=== PATIENT | male | born 1985 | race Caucasian/White ===

== ENCOUNTER 2016-05-10 23:42 | Inpatient (IN) | payer BC, OTHER ==
[~2016-05-10] VITALS: Ht 188 cm; Wt 108.2 kg
[2016-05-10] MEDS ORDERED: PANT40TA2 PO (23:54)
[2016-05-10] MEDS ORDERED: PARO5TAB PO (23:54)
[2016-05-10] MEDS ORDERED: BUPR150T5 PO (23:54)
[2016-05-10] MEDS ORDERED: CLON0.5T PO (23:54)
[2016-05-11] VITALS (9 sets, daily range): BP systolic 110–130; BP diastolic 62–80
[2016-05-11] MEDS ORDERED: NS 1,000 ML IV ONE (00:45)
[2016-05-11 01:05] LABS: BASO % 0.6 % (0.0-1.0); EOS % 0.9 % (0.0-3.0); LARGE UNSTAINED CELL # 0.2 K/mm3 (0.0-0.4); LARGE UNSTAINED CELL % 2.8 % (0.0-4.0); LYMPH % 14.5 % (24.0-44.0); MEAN CORPUSCULAR HEMOGLOBIN 31.2 pg (27.0-33.0); MEAN CORPUSCULAR HGB CONC 33.4 g/dl (32.0-36.5); MEAN CORPUSCULAR VOLUME 93.4 fl (80.0-96.0); MONO # 0.7 K/mm3 (0.0-0.8); MONO % 11.5 % (0.0-5.0); NEUTROPHILS % 69.6 % (36.0-66.0); PLATELET COUNT, AUTOMATED 155 k/mm3 (150-450); WHITE BLOOD COUNT 5.7 K/mm3 (4.0-10.0)
[2016-05-11 01:27] LABS: ALBUMIN 3.3 GM/DL (3.2-5.2); ALBUMIN/GLOBULIN RATIO 0.89 (1.00-1.93); ALKALINE PHOSPHATASE 80 U/L (45-117); ALT/SGPT 40 U/L (12-78); ANION GAP 7 MEQ/L (8-16); AST/SGOT 23 U/L (15-37); BILIRUBIN,DIRECT < 0.1 MG/DL (0.0-0.2); BILIRUBIN,TOTAL 0.4 MG/DL (0.2-1.0); BLOOD UREA NITROGEN 12 MG/DL (7-18); CALCIUM LEVEL 9.1 MG/DL (8.5-10.1); CARBON DIOXIDE LEVEL 27 MEQ/L (21-32); CHLORIDE LEVEL 103 MEQ/L (98-107); CREATININE FOR GFR 1.02 MG/DL (0.70-1.30); GLOMERULAR FILTRATION RATE > 60.0 (>60); GLUCOSE, FASTING 121 MG/DL (70-105); POTASSIUM SERUM 3.9 MEQ/L (3.5-5.1); SODIUM LEVEL 137 MEQ/L (136-145)
[2016-05-11] MEDS ORDERED: ISOVUE-370 76% 100ML VIAL (Q9967) As Ordered ONE (01:45)
[2016-05-11] MEDS ORDERED: ONDANSETRON 4MG/2ML VIAL (J2405) IV ONE (01:45)
[2016-05-11] MEDS ORDERED: MORPHINE 4 MG/ML 1ML SYRINGE IV ONE (01:45)
--- NOTE | 2016-05-11 02:50 | REPUSA ---
CLINICAL HISTORY: Abdominal pain. TECHNIQUE: Multiple axial, sagittal and coronal CT images were obtained through the abdomen and pelvi s after administration of intravenous contrast material. COMMENTS: The liver is mildly enlarged with decreased attenuation without mass or defect. There is no intra or extrahepatic biliary ductal dilatation. The spleen is normal. The gallbladder is surgically absent. T he pancreas is of normal contour and attenuation characteristics. There is no evidence of adrenal mas s. Both kidneys demonstrate prompt and equal nephrograms. The kidneys are normal in size, shape and conf iguration. There is no evidence of renal or ureteral mass. No renal or ureteral calculi are identifie d. There is no hydroureter or hydronephrosis. No evidence for appendicitis. There is diffuse thickening of the sigmoid. No evidence for small or l arge bowel obstruction. There is no evidence of abdominal ascites or lymphadenopathy. There is no evidence of intrinsic or extrinsic bladder mass. Small amount of free pelvic fluid. Images of the lung bases show no evidence of pleural or parenchymal mass. There are no pleural effusi ons. The bony structures are free of lytic or blastic lesions. Multilevel degenerative changes are seen in volving the thoracolumbar spine. Scattered calcifications are seen involving the aorta and major bran ches compatible with atherosclerosis. IMPRESSION: Sigmoid colitis. No perforation or abscess formation. Mild hepatomegaly with fatty liver infiltration. Small amount of free pelvic fluid. Cholecystectomy. Thank you for your kind referral of this patient.
[2016-05-11] MEDS ORDERED: metroNIDAZOLE 500 MG in APPROPRIATE DILUENT 1 EA IV ONE (03:15)
[2016-05-11] MEDS ORDERED: CIPROFLOXACIN 400 MG in APPROPRIATE DILUENT 1 EA IV ONE (03:15)
[2016-05-11] MEDS ORDERED: ONDANSETRON 4MG/2ML VIAL (J2405) IV PRN (03:45)
[2016-05-11] MEDS ORDERED: ACETAMINOPHEN TAB 650MG DOSE (2X325MG) PO PRN (03:45)
[2016-05-11] MEDS ORDERED: CETI10TA PO (03:58)
[2016-05-11] MEDS ORDERED: metroNIDAZOLE 500 MG in APPROPRIATE DILUENT 1 EA IV SCH (04:00)
[2016-05-11] MEDS: NS 1,000 ML IV SCH ×2 (04:37→15:08)
[2016-05-11] MEDS: MORPHINE 2 MG/ML 1ML SYRINGE IV PRN ×3 (05:47→16:53)
--- NOTE | 2016-05-11 06:05 | HPE ---
DATE OF ADMISSION: 05/11/2016 PRIMARY CARE PROVIDER: Jayna Clark DO CHIEF COMPLAINT: Lower abdominal pain with bloody diarrhea. HISTORY OF PRESENT ILLNESS: This patient is a 30-year-old male with a past medical history significant for anxiety/depression, seasonal asthma, gastroesophageal reflux disease (GERD), presented to [facility] 05/11/2016 for acute worsening lower abdominal pain with blood in the stool. Patient states he started having diarrhea approximately 4-5 days ago and in the last 2-3 days he started having noted blood in the stool and patient also started to have a fever, the highest of 101, in the past 3 days. His stool became very watery, now he cannot even see any formed stool. Every time when he go to a restroom all he see is blood in the toilet water. Never had a similar episode before it. Patient experienced some mild nausea. No vomiting. Denied any other associated symptoms. Denies any recent antibiotic use. Denied any new medication change. Denied any new lifestyle modifications. ALLERGIES: 1. CODEINE (nausea, vomiting). 2. TRAMADOL (nausea, vomiting). PAST MEDICAL HISTORY: 1. Anxiety/depression. 2. Seasonal asthma. 3. Gastroesophageal reflux disease. 4. Cholecystectomy in April 2013. 5. Inguinal hernia repair approximately 4-5 years ago. HOME MEDICATIONS: - clonazepam 0.5 mg by mouth twice a day - paroxetine 5 mg by mouth daily - Protonix 40 mg by mouth daily - bupropion 150 mg by mouth twice a day REVIEW OF SYSTEMS: GENERAL: Positive fever, no chills, for 3 days. HEENT: No vision changes. No auditory changes. CARDIOVASCULAR: No chest pain. No palpitations. RESPIRATORY: No difficulty breathing. No cough. No sputum production. GASTROINTESTINAL (GI): Lower abdominal pain, started 4 days ago, was diarrhea, started seeing blood in the stool in the past 2-3 days. Complained about nausea but no vomiting. MUSCULOSKELETAL: Denied any muscle pain or joint pain. PSYCHIATRIC: History of anxiety/depression. NEUROLOGICAL: No numbness or tingling. OBJECTIVE: VITAL SIGNS: Temperature is 98.2. Pulse is 93. Respiration 18. Blood pressure is 122/77. Pulse oximetry is 95% in room air. GENERAL: No sign of acute distress. Alert and oriented times three. HEENT: Normocephalic, atraumatic. Extraocular motors grossly intact. CARDIOVASCULAR: Positive S1, S2. Regular rate. LUNGS: Clear to auscultation bilaterally. ABDOMEN: Tenderness to palpation in bilateral lower abdomen, more significant in the left lower abdomen. No rebound. Abdomen is soft. MUSCULOSKELETAL: No lower extremity edema. No cyanosis. NEUROLOGICAL: Sensation to fine touch grossly intact. Muscle strength 5/5. LABORATORY DATA: WBC is 5.7, hemoglobin 16.3, hematocrit is 48.9, platelet count is 155. Sodium is 137, potassium 3.9, chloride 103, carbon dioxide 27, BUN 12, creatinine 1.02, GFR greater than 60, fasting glucose 121, calcium 9.1, total bilirubin 0.4, direct bilirubin less than 0.1, AST 23, ALT is 40, alkaline phosphatase is 80, total protein 7, albumin 3.3, lipase 125. MICROBIOLOGY: GI panel pending. IMAGING STUDIES: CT of abdomen and pelvis with IV contrast show sigmoid colitis. No perforation or abscess formation. Mild hepatomegaly with fatty liver infiltrate. Small amount of free pelvic fluid. ASSESSMENT AND PLAN: 1. Colitis. Patient will be admitted to medical-surgical floor on inpatient status. Empirically, patient is started on Cipro and Flagyl. Wait for the result for GI panel. Will tailor the antibiotic regimen accordingly. Patient currently on the IV fluid and patient will have a liquid diet if tolerated. 2. Anxiety/depression. Continue home medication, which is the Paxil 5 mg, bupropion 150 mg by mouth twice a day, clonazepam 0.5 mg by mouth daily. 3. Gastroesophageal reflux disease. Protonix 40 mg by mouth daily. 4. Seasonal allergy. Zyrtec. 5. Deep venous thrombosis (DVT) prophylaxis. Patient does not have increased risk of DVT. Therefore, encourage ambulation as tolerated. No anticoagulation medications needed at this moment.
[2016-05-11 07:54] LABS: MEAN CORPUSCULAR HEMOGLOBIN 31.7 pg (27.0-33.0); MEAN CORPUSCULAR HGB CONC 33.6 g/dl (32.0-36.5); MEAN CORPUSCULAR VOLUME 94.4 fl (80.0-96.0); RED CELL DISTRIBUTION WIDTH 11.9 % (11.5-14.5); WHITE BLOOD COUNT 5.6 K/mm3 (4.0-10.0)
[2016-05-11 08:26] LABS: ANION GAP 8 MEQ/L (8-16); BLOOD UREA NITROGEN 11 MG/DL (7-18); CALCIUM LEVEL 8.4 MG/DL (8.5-10.1); CARBON DIOXIDE LEVEL 28 MEQ/L (21-32); CHLORIDE LEVEL 105 MEQ/L (98-107); CREATININE FOR GFR 1.04 MG/DL (0.70-1.30); GLOMERULAR FILTRATION RATE > 60.0 (>60); GLUCOSE, FASTING 101 MG/DL (70-105); SODIUM LEVEL 141 MEQ/L (136-145)
[2016-05-11] MEDS ORDERED: PARoxetine 10MG TABLET PO SCH (09:00)
[2016-05-11] MEDS: clonazePAM 0.5 MG TAB PO SCH ×2 (09:25→20:01)
[2016-05-11] MEDS: CETIRIZINE (ZyrTEC) 10 MG TAB PO SCH (09:25)
[2016-05-11] MEDS: buPROPion **SR TABLET** (ZYBAN) 150MG PO SCH ×2 (09:25→20:01)
[2016-05-11] MEDS: PANTOPRAZOLE 40MG TAB (PROTONIX) PO SCH (09:25)
--- NOTE | 2016-05-11 12:02 | IPNPDOC ---
Subjective Date Seen The patient was seen on 05/11/16. Subjective Chief Complaint/HPI The patient is a 30-year-old male admitted with a reason for visit of Diarrhea/ Bloody Stools. Events since last encounter He reports that he is feeling much better this morning, although he did have at least 3-4 episodes of diarrhea last night, all of which did have some blood in them still. He has attempted to take a couple sips of clear liquids, but otherwise does not feel up to eating just yet. He does continue to have some pain down in the suprapubic area with some extension up into the left flank. General: Denies: Fatigue, Malaise, Normal Appetite Constitutional: Reports: Fever, Denies: Chills, Night Sweats ENT: Denies: Head Aches, Sore Throat Skin: Denies: Bruising, Lesions, Rash Pulmonary: Denies: Cough, Dyspnea Cardiovascular: Denies: Chest Pain, Palpitations Gastrointestinal: Reports: Abdominal Pain, Diarrhea (with blood mixed in), Nausea, Denies: Vomiting Neurological: Denies: Weakness Objective Physical Examination General Exam: Positive: Alert, Cooperative, No Acute Distress Eye Exam: Positive: Conjunctiva & lids normal, EOMI, Negative: Ptosis, Sclera icteric Chest Exam: Positive: Clear to auscultation, Normal air movement, Negative: Rales, Rhonchi, Wheezing Heart Exam: Positive: Normal S1, Normal S2, Rate Normal, Negative: Gallops, Murmurs, Rubs Abdomen Exam: Positive: Normal bowel sounds, Soft, Tenderness (and tender in the suprapubic area and left lower quadrant), Negative: Hepatospenomegaly, Hernia, Mass Extremity Exam: Positive: Normal pulses, Negative: Clubbing, Cyanosis, Edema Skin Exam: Positive: Nl turgor and temperature, Negative: Rash Neuro Exam: Positive: Cranial Nerves 3-12 NL, Normal Speech Psych Exam: Positive: Mental status NL, Mood NL, Oriented x 3 Assessment /Plan Problems (1) Salmonella enteritis Status: Acute Problem Text: Ciprofloxacin was started on 05/10/2016, it is recommended to continue this for 7-10 days. Continue with IV fluids at this time as the patient is unable to tolerate by mouth intake, and continues to have diarrhea Fever has abated, we'll continue to monitor vital signs. (2) Colitis, acute Status: Acute (3) Anxiety and depression Status: Chronic Problem Text: He informs me that his sexual home dose of Paxil is 10 mg daily, not 5, therefore I will changen this for him. (4) GERD (gastroesophageal reflux disease) Status: Chronic Problem Text: Continue Protonix (5) Seasonal allergies Status: Chronic Problem Text: Continue Zyrtec Plan/VTE VTE Prophylaxis Ordered?: Yes (TEDs) Plan Will continue with IV fluids and IV antibiotics. As soon as he is able to tolerate foods and liquids, and his diarrhea improves, he will be ready to go home and finish out his antibiotics orally. Given his improvement overnight, I anticipate that he may be ready to go in the next 24-48 hours. VS, I&O, 24H, Fishbone Vital Signs/I&O Vital Signs Date Time Temp Pulse Resp B/P Pulse Ox O2 Delivery O2 Flow Rate FiO2 05/11/16 10:41 18 05/11/16 08:17 122/71 05/11/16 07:45 99.1 87 96 Room Air I&O- Last 24 Hours up to 6 AM 05/11/16 06:00 Intake Total 1280 ml Balance 1280 ml Laboratory Data 24H LABS Laboratory Tests 2 05/11/16 00:53: Aspartate Amino Transf (AST/SGOT) 23, Alanine Aminotransferase (ALT/SGPT) 40, Alkaline Phosphatase 80, Total Bilirubin 0.4, Direct Bilirubin < 0.1, Albumin 3.3, Albumin/Globulin Ratio 0.89L, Anion Gap 7L, White Blood Count 5.7, Red Blood Count 5.23, Hemoglobin 16.3, Hematocrit 48.9, Mean Corpuscular Volume 93.4 , Mean Corpuscular Hemoglobin 31.2, Mean Corpuscular Hemoglobin Concent 33.4, Red Cell Distribution Width 12.0, Platelet Count 155, Neutrophils (%) (Auto) 69.6H, Lymphocytes (%) (Auto) 14.5L, Monocytes (%) (Auto) 11.5H, Eosinophils (% ) (Auto) 0.9, Basophils (%) (Auto) 0.6, Neutrophils # (Auto) 4.0, Lymphocytes # (Auto) 1.0L, Monocytes # (Auto) 0.7, Eosinophils # (Auto) 0.0, Basophils # (Auto ) 0.0, C-Reactive Protein, Quantitative 16.60H, Calcium Level 9.1, Glomerular Filtration Rate > 60.0, Large Unclassified Cells # 0.2, Large Unclassified Cells % 2.8, Lipase 125, Total Protein 7.0 05/11/16 07:31: Anion Gap 8, Calcium Level 8.4L, Glomerular Filtration Rate > 60.0, Blood Urea Nitrogen 11, Creatinine 1.04, Sodium Level 141, Potassium Level 4.0, Chloride Level 105, Carbon Dioxide Level 28 CBC/BMP Laboratory Tests 05/11/16 00:53 Red Blood Count 5.23, Mean Corpuscular Volume 93.4, Mean Corpuscular Hemoglobin 31.2, Mean Corpuscular Hemoglobin Concent 33.4, Red Cell Distribution Width 12.0 , Neutrophils (%) (Auto) 69.6 H, Lymphocytes (%) (Auto) 14.5 L, Monocytes (%) ( Auto) 11.5 H, Eosinophils (%) (Auto) 0.9, Basophils (%) (Auto) 0.6, Neutrophils # (Auto) 4.0, Lymphocytes # (Auto) 1.0 L, Monocytes # (Auto) 0.7, Eosinophils # (Auto) 0.0, Basophils # (Auto) 0.0 05/11/16 07:31 Red Blood Count 4.70, Mean Corpuscular Volume 94.4, Mean Corpuscular Hemoglobin 31.7, Mean Corpuscular Hemoglobin Concent 33.6, Red Cell Distribution Width 11.9 , Calcium Level 8.4 L Microbiology Microbiology 05/11/16 Blood Culture, Received Pending 05/11/16 Blood Culture, Received Pending 05/11/16 Gastrointestinal Tract Panel (PCR) - Preliminary, Resulted Salmonella GME ATTESTATION GME ATTESTATION My preceptor for this patient encounter was physically present in the building during the encounter and was fully available. As needed, all aspects of the patient interview, examination, medical decision making process, and medical care plan development were reviewed and approved by the preceptor. Preceptor is aware and concurs with the plan as stated in the body of this note and will attest to such by his/her cosignature. ATTENDING NOTE I have both independently examined this patient as well as reviewed the note. I have discussed in detail with the resident the findings and plan of treatment as documented in the residents note. I will continue to follow the patient and offer further guidance to the patients care as necessary during this hospital stay. BLAYNE Edmonds MD, DO May 11, 2016 12:02 LUIS FOX MD May 11, 2016 16:49
[2016-05-11] MEDS: CIPROFLOXACIN 400 MG in APPROPRIATE DILUENT 1 EA IV SCH (15:12)
[2016-05-12] VITALS (7 sets, daily range): BP systolic 106–141; BP diastolic 67–92
[2016-05-12] MEDS: CIPROFLOXACIN 400 MG in APPROPRIATE DILUENT 1 EA IV SCH ×2 (03:47→16:15)
[2016-05-12] MEDS: NS 1,000 ML IV SCH (03:48)
[2016-05-12 07:22] LABS: MEAN CORPUSCULAR HGB CONC 34.3 g/dl (32.0-36.5); MEAN CORPUSCULAR VOLUME 93.3 fl (80.0-96.0); RED CELL DISTRIBUTION WIDTH 12.1 % (11.5-14.5); WHITE BLOOD COUNT 4.8 K/mm3 (4.0-10.0)
[2016-05-12 07:34] LABS: ANION GAP 7 MEQ/L (8-16); BLOOD UREA NITROGEN 9 MG/DL (7-18); CALCIUM LEVEL 8.4 MG/DL (8.5-10.1); CARBON DIOXIDE LEVEL 29 MEQ/L (21-32); CHLORIDE LEVEL 104 MEQ/L (98-107); CREATININE FOR GFR 0.88 MG/DL (0.70-1.30); GLOMERULAR FILTRATION RATE > 60.0 (>60); GLUCOSE, FASTING 97 MG/DL (70-105); MAGNESIUM LEVEL 1.9 MG/DL (1.8-2.4); SODIUM LEVEL 140 MEQ/L (136-145)
[2016-05-12] MEDS: LACTOBACILLUS ACIDOPHILUS CAP (BACID) PO SCH ×3 (08:00→17:44)
[2016-05-12] MEDS: clonazePAM 0.5 MG TAB PO SCH ×2 (09:19→20:37)
[2016-05-12] MEDS: PANTOPRAZOLE 40MG TAB (PROTONIX) PO SCH (09:19)
[2016-05-12] MEDS: CETIRIZINE (ZyrTEC) 10 MG TAB PO SCH (09:19)
[2016-05-12] MEDS: PARoxetine 10MG TABLET PO SCH (09:19)
[2016-05-12] MEDS: buPROPion **SR TABLET** (ZYBAN) 150MG PO SCH ×2 (09:19→20:37)
--- NOTE | 2016-05-12 17:26 | IPNPDOC ---
Subjective Date Seen The patient was seen on 05/12/16. Subjective Chief Complaint/HPI The patient is a 30-year-old male admitted with a reason for visit of Diarrhea/ Bloody Stools. Events since last encounter He was able to tolerate his full liquids diet this morning for breakfast, therefore he was feeling as though he might be able to go home. We agreed that he should at least stay and try eating a regular diet for lunch. After eating lunch he vomited all the contents approximately 20 minutes later. He does not feel as though he is ready to go home at this time. Also, after vomiting he does have some increased pain in the suprapubic and left lower quadrant area. He also mentions that he did have one bloody bowel movement throughout the night last night, which is an improvement from prior, but he is still having diarrhea. General: Reports: Fatigue, Denies: Malaise, Normal Appetite Constitutional: Denies: Chills, Fever, Night Sweats ENT: Denies: Head Aches, Sore Throat Skin: Denies: Bruising, Lesions, Rash Pulmonary: Denies: Cough, Dyspnea Cardiovascular: Denies: Chest Pain, Palpitations Gastrointestinal: Reports: Abdominal Pain, Diarrhea, Nausea, Vomiting, Denies: Constipation Neurological: Denies: Weakness Objective Physical Examination General Exam: Positive: Alert, No Acute Distress Eye Exam: Positive: Conjunctiva & lids normal, EOMI, Negative: Ptosis, Sclera icteric Chest Exam: Positive: Clear to auscultation, Normal air movement, Negative: Rales, Rhonchi, Wheezing Heart Exam: Positive: Rate Normal, Negative: Gallops, Murmurs, Rubs Abdomen Exam: Positive: Normal bowel sounds, Soft, Tenderness (tender in the suprapubic area and left lower quadrant), Negative: Hepatospenomegaly, Hernia, Mass Extremity Exam: Positive: Normal pulses, Negative: Clubbing, Cyanosis, Edema Skin Exam: Positive: Nl turgor and temperature, Negative: Rash Psych Exam: Positive: Mental status NL, Mood NL, Oriented x 3 Assessment /Plan Problems (1) Salmonella enteritis Status: Acute Problem Text: Ciprofloxacin was started on 05/10/2016, it is recommended to continue this for 7-10 days. He does appear to be able to tolerate liquids, therefore we will continue him ON a full liquid diet for the remainder of the evening, and we will discontinue his IV hydration at this time. We will reassess in the morning. (2) Colitis, acute Status: Acute (3) Anxiety and depression Status: Chronic Problem Text: Continue with home dose of Paxil (4) GERD (gastroesophageal reflux disease) Status: Chronic Problem Text: Continue Protonix (5) Seasonal allergies Status: Chronic Problem Text: Continue Zyrtec Plan/VTE VTE Prophylaxis Ordered?: Yes (TEDs) VS, I&O, 24H, Fishbone Vital Signs/I&O Vital Signs Date Time Temp Pulse Resp B/P Pulse Ox O2 Delivery O2 Flow Rate FiO2 05/12/16 16:00 96.9 83 18 106/67 97 Room Air I&O- Last 24 Hours up to 6 AM 05/12/16 06:00 Intake Total 3420 ml Output Total 1325 ml Balance 2095 ml Laboratory Data 24H LABS Laboratory Tests 2 05/12/16 07:04: Anion Gap 7L, Blood Urea Nitrogen 9, Creatinine 0.88, Sodium Level 140, Potassium Level 4.0, Chloride Level 104, Carbon Dioxide Level 29, Calcium Level 8.4L, Glomerular Filtration Rate > 60.0, Magnesium Level 1.9 CBC/BMP Laboratory Tests 05/11/16 18:50 05/12/16 07:04 Calcium Level 8.4 L, Red Blood Count 4.42, Mean Corpuscular Volume 93.3, Mean Corpuscular Hemoglobin 32.0, Mean Corpuscular Hemoglobin Concent 34.3, Red Cell Distribution Width 12.1 Microbiology Microbiology 05/11/16 Blood Culture - Preliminary, Resulted No growth after 24 hours . All specim... 05/11/16 Blood Culture - Preliminary, Resulted No growth after 24 hours . All specim... 05/11/16 Gastrointestinal Tract Panel (PCR) - Final, Complete Salmonella BLAYNE BRADSHAW DO May 12, 2016 17:26
[2016-05-13 00:02] VITALS: BP 118/72
[2016-05-13] MEDS: CIPROFLOXACIN 400 MG in APPROPRIATE DILUENT 1 EA IV SCH (04:00)
[2016-05-13 06:58] LABS: ANION GAP 6 MEQ/L (8-16); BLOOD UREA NITROGEN 11 MG/DL (7-18); CALCIUM LEVEL 8.8 MG/DL (8.5-10.1); CARBON DIOXIDE LEVEL 32 MEQ/L (21-32); CHLORIDE LEVEL 102 MEQ/L (98-107); CREATININE FOR GFR 1.02 MG/DL (0.70-1.30); GLOMERULAR FILTRATION RATE > 60.0 (>60); GLUCOSE, FASTING 107 MG/DL (70-105); MAGNESIUM LEVEL 2.1 MG/DL (1.8-2.4); POTASSIUM SERUM 3.9 MEQ/L (3.5-5.1); SODIUM LEVEL 140 MEQ/L (136-145)
[2016-05-13 07:05] LABS: MEAN CORPUSCULAR HEMOGLOBIN 31.5 pg (27.0-33.0); MEAN CORPUSCULAR HGB CONC 33.7 g/dl (32.0-36.5); MEAN CORPUSCULAR VOLUME 93.4 fl (80.0-96.0); RED CELL DISTRIBUTION WIDTH 11.9 % (11.5-14.5); WHITE BLOOD COUNT 5.7 K/mm3 (4.0-10.0)
[2016-05-13 08:00] VITALS: BP 125/71
[2016-05-13] MEDS ORDERED: CIPR500T3 PO (09:11)
[2016-05-13] MEDS ORDERED: RISATAB3 PO (09:11)
[2016-05-13] MEDS: buPROPion **SR TABLET** (ZYBAN) 150MG PO SCH (09:13)
[2016-05-13] MEDS: LACTOBACILLUS ACIDOPHILUS CAP (BACID) PO SCH (09:13)
[2016-05-13] MEDS: clonazePAM 0.5 MG TAB PO SCH (09:13)
[2016-05-13] MEDS: PANTOPRAZOLE 40MG TAB (PROTONIX) PO SCH (09:13)
[2016-05-13] MEDS: CETIRIZINE (ZyrTEC) 10 MG TAB PO SCH (09:14)
[2016-05-13] MEDS: PARoxetine 10MG TABLET PO SCH (09:14)
--- NOTE | 2016-05-13 12:39 | DS.PDOC ---
Discharge Summary General Date of Admission May 11, 2016 at 07:53 Date of Discharge May 13, 2016 at 10:10 Discharge Summary PRIMARY CARE PHYSICIAN: Jayna Clark DO ATTENDING AT TIME OF DISCHARGE: Dr. Jed SEVILLA DISCHARGE DIAGNOS(E)S: 1. Salmonella enteritis/colitis 2. Anxiety and depression 3. GERD 4. Seasonal allergies HPI & HOSPITAL COURSE: Mr Coon is a 30-year-old male who presented to the emergency department after a 4-5 day history of diarrhea, and the 2-3 days prior to his hospitalization he had noted bloody stools, and then he had spiked a fever of approximately 101 and. Therefore he decided to come into the emergency department. A GI panel was performed which revealed that he had Salmonella by PCR. He was started on ciprofloxacin twice a day and IV fluids because he was not able to tolerate oral intake. A CT of the abdomen and pelvis performed upon admission revealed sigmoid colitis with no perforation or abscess formation. Mild hepatomegaly with fatty liver infiltration. A small amount of free pelvic fluid and changes consistent with prior cholecystectomy. Over the subsequent few days he did improve, his bowels have slowed down significantly, and although he still does have loose stools, he does not have addison watery diarrhea like he used to. Pain has also significantly increased and, although he does have some residual discomfort, and feelings of tenesmus and straining, but these also improved as well. On today the day of discharge he is feeling significantly better, he is able to tolerate a regular diet for both dinner last night as well as breakfast this morning, and appears to be stable for discharge at this time. PHYSICAL EXAMINATION ON DISCHARGE: GENERAL: Awake, alert, oriented 3. He is sitting upright on the edge of the bed. He is in no acute distress. He is in a good mood CARDIOVASCULAR EXAMINATION: Regular rate and rhythm, with no rubs, gallops, or murmur. RESPIRATORY EXAMINATION: Clear to auscultation bilaterally with no wheezes, rales, or rhonchi. ABDOMINAL EXAMINATION: Soft, minimally tender in the superior Area extending into the left lower quadrant, nondistended. Bowel sounds present, neither hypoactive nor hyperactive. EXTREMITIES: No clubbing or edema noted. 2+ pulses in the radial bilaterally. DISPOSITION: Home DISCHARGE INSTRUCTIONS: On follow-up with primary care provider Dr. Jayna Clark DO within 7-10 days. If symptoms return, or if you experience worsening of your symptoms, please call your doctor or return to the emergency department. Take antibiotics as prescribed until all the pills are gone even if you're feeling better. Also recommend taking probiotic for the next 10 days as well. My preceptor for this patient encounter was physically present in the building during the encounter and was fully available. As needed, all aspects of the patient interview, examination, medical decision making process, and medical care plan development were reviewed and approved by the preceptor. Preceptor is aware and concurs with the plan as stated in the body of this note and will attest to such by his/her cosignature. Vital Signs/I&Os Vital Signs Date Time Temp Pulse Resp B/P Pulse Ox O2 Delivery O2 Flow Rate FiO2 05/13/16 08:00 98.8 76 18 125/71 98 Room Air I&O- Last 24 Hours up to 6 AM 05/13/16 05:59 Intake Total 3180 ml Output Total 3325 ml Balance -145 ml Laboratory Data Labs 24H Laboratory Tests 2 05/13/16 06:35: Anion Gap 6L, Blood Urea Nitrogen 11, Creatinine 1.02, Sodium Level 140, Potassium Level 3.9, Chloride Level 102, Carbon Dioxide Level 32, Calcium Level 8.8, Glomerular Filtration Rate > 60.0, Magnesium Level 2.1 CBC/BMP Laboratory Tests 05/13/16 06:35 Calcium Level 8.8, Red Blood Count 4.58, Mean Corpuscular Volume 93.4, Mean Corpuscular Hemoglobin 31.5, Mean Corpuscular Hemoglobin Concent 33.7, Red Cell Distribution Width 11.9 Microbiology Microbiology 05/11/16 Blood Culture - Preliminary, Resulted No Growth after 48 hours. All Specime... 05/11/16 Blood Culture - Preliminary, Resulted No Growth after 48 hours. All Specime... 05/11/16 Gastrointestinal Tract Panel (PCR) - Final, Complete Salmonella Discharge Medications Scheduled (Deysi-Bid Probiotic) 1 Tab Tab 1 EA PO BIDWM Bupropion Hcl (Bupropion HCl Sr) 150 Mg Tab 150 MG PO BID (Reported) Cetirizine HCl (Cetirizine HCl) 10 Mg Tab 10 MG PO DAILY (Reported) Ciprofloxacin HCl (Ciprofloxacin HCl) 500 Mg Tab 500 MG PO BID Clonazepam (Clonazepam) 0.5 Mg Tab 1 TAB PO BID (Reported) Pantoprazole Sodium (Pantoprazole Sodium) 40 Mg Tab 40 MG PO DAILY (Reported) Paroxetine (Paroxetine HCl) 5 Mg Halftab 10 MG PO DAILY (Reported) Allergies Coded Allergies: Codeine (Verified Allergy, Unknown, vomit, 05/10/16) Tramadol (Verified Allergy, Unknown, vomit, 05/10/16) BLAYNE BRADSHAW DO May 13, 2016 12:39
== END 2016-05-13 10:10 | disposition home or self-care (01) | DRG 248 ==
LOC: M ED 05-11 01:34 → M ED INP 05-11 03:49 → M PED 05-11 04:45 → OBSVTOIN 05-11 07:53
PROVIDERS: ADMIT Hospitalist; ATTEND Internal Medicine
DX: A02.0 Salmonella enteritis (principal); F32.9 Major depressive disorder, single episode, unspecified; F41.9 Anxiety disorder, unspecified; K21.9 Gastro-esophageal reflux disease without esophagitis; J30.2 Other seasonal allergic rhinitis; Z90.49 Acquired absence of other specified parts of digestive tract; Z79.899 Other long term (current) drug therapy; Z88.5 Allergy status to narcotic agent

== ENCOUNTER → 2020-01-17 | Outpatient (CLI) | payer BC ==
[~2020-01-17] MED LIST: AMIT50TA PO; BUPR150T5 PO; CETI10TA PO; CIPR500T3 PO; CLON0.5T2 PO; GABA-1171 PO; IBUP200C89 PO; PANT40TA29 PO; PARO5TAB PO; RISATAB3 PO
== END ==
LOC: M LABSMTC 10:11
PROVIDERS: ATTEND Anesthesiology
DX: Z01.812 Encounter for preprocedural laboratory examination (principal); Z11.59 Encounter for screening for other viral diseases

== ENCOUNTER 2020-01-22 07:02 | Day surgery (SDC) | payer BC ==
[~2020-01-22] VITALS: Ht 185.4 cm; Wt 122.9 kg
[~2020-01-22 07:02] MED LIST changes: +LIDOCAINE 2% 100MG/5ML SDV (FOR ANES.) As Ordered ONE; +LR 1,000 ML IV ONE; +MIDAZOLAM INJ 2MG/2ML VIAL (J2250 PER 1MG) As Ordered ONE; +ONDANSETRON 4MG/2ML VIAL As Ordered ONE; +ROCURONIUM BROMIDE 50 MG/5 ML VIAL As Ordered ONE; +SUGAMMADEX SODIUM 500 MG/5 ML VIAL (BRIDION) As Ordered ONE; +ceFAZolin SOD 2 GM in IV 1 EA IV ONE; +dexameTHASONE 4 MG/ML 1ML VIAL (J1100 PER 1MG) As Ordered ONE; +fentaNYL 250 MCG/5 ML INJECTION (J3010) As Ordered ONE; +propofoL 200 MG/20 ML VIAL As Ordered ONE
[2020-01-22] MEDS ORDERED: LIDOCAINE 1% MDV 20ML VIAL As Ordered ONE (07:47)
[2020-01-22] MEDS ORDERED: fentaNYL 100 MCG/2 ML INJECTION (J3010) As Ordered ONE ×2 (07:47→12:00)
[2020-01-22] MEDS ORDERED: dexameTHASONE 4 MG/ML 1ML VIAL (J1100 PER 1MG) As Ordered ONE (07:47)
[2020-01-22] MEDS ORDERED: MIDAZOLAM INJ 2MG/2ML VIAL (J2250 PER 1MG) As Ordered ONE (07:47)
[2020-01-22] MEDS ORDERED: ROPIvacaine 0.5% 30ML INJECTION (J2795 PER 1MG) As Ordered ONE (07:47)
[2020-01-22] MEDS ORDERED: BUPIVACAINE HCL 0.5% 30 ML VIAL As Ordered ONE (08:01)
[2020-01-22] MEDS ORDERED: ACETAMINOPHEN 1000MG 100ML IV BTL (OFIRMEV) (J0131 PER 10MG) As Ordered ONE (08:58)
[2020-01-22] MEDS ORDERED: ROCURONIUM BROMIDE 50 MG/5 ML VIAL As Ordered ONE (08:59)
[2020-01-22] MEDS ORDERED: HYDROmorphone HCL 2 MG/ML 1ML VIAL (J1170) As Ordered ONE (10:54)
[2020-01-22] MEDS ORDERED: oxyCODONE 5MG TAB As Ordered ONE (11:43)
[2020-01-22] MEDS ORDERED: oxyCODONE 5MG TAB PO PRN ×2 (12:00)
[2020-01-22] MEDS ORDERED: LR 1,000 ML IV SCH ×2 (12:00)
[2020-01-22] MEDS: fentaNYL 100 MCG/2 ML INJECTION (J3010) IV PRN ×2 (12:02→12:15)
[2020-01-22 14:10] VITALS: BP 133/95
--- NOTE | 2020-02-19 14:09 | RO ---
OPERATIVE NOTE DATE OF OPERATION: 01/22/2020 PREOPERATIVE DIAGNOSIS: Left talus osteochondral lesion. POSTOPERATIVE DIAGNOSIS: Left talus osteochondral lesion. PROCEDURE: 1. Arthroscopic debridement of the left tibiotalar joint using the nanoscope. 2. Left ankle arthrotomy and BioCartilage after debridement of a talar osteochondral lesion. SURGEON: Kellen Thompson M.D. NETWORK ENGINEER: Scar Torrez MD ESTIMATED BLOOD LOSS: 25 mL COMPLICATIONS: None. CONDITION: Stable to recovery. INDICATIONS: John Coon is a 34-year-old male who has had longstanding pain due to an osteochondral lesion in his left ankle. He has failed conservative measures. Risks and benefits of surgery were discussed with him in detail and are not limited to infection, damage to nerves and blood vessels, continued pain and stiffness, need for additional procedures. Informed consent was obtained. PROCEDURE: The patient was met in the preoperative holding area where the left lower extremity was marked as the correct operative side. He was taken to the operating room where he was placed in the supine position on the operating room table. Bony prominences were well-padded. A well-padded tourniquet was placed on the left upper thigh. The left lower extremity was prepped and draped in the normal sterile fashion. An official timeout was held where the correct patient, operative side and operative procedure were verified. The leg was exsanguinated and tourniquet was inflated to 250 mmHg. A standard medial portal was made using an 11 blade. I gained access to joint with a snap. I had initially injected with 10 mL of normal saline. The nanoscope was inserted into the ankle. I was able to get good visualization of the ankle. The osteochondral lesion was identified and was found to be fairly small. It appeared to be a cm or less in size. I did make a lateral portal also using an 11 blade and used an arthroscopic shaver to debride the area. Following this, the nanoscope was removed. A small incision was made over the anteromedial aspect of the ankle. An arthrotomy to the ankle joint was then made. Using Jaron distractor, I was able to distract the ankle and gain access to the osteochondral lesion. It was thoroughly debrided with a curette. I then drilled 2-3 holes with a 0.045 K-wire to gain access to stimulate bleeding. Following this, the area was packed with BioCartilage which had been prepared with peripheral blood. I then used fibrin over the top of it. This area was kept dry for ten minutes to allow the BioCartilage and fibrin to set. After that, I went through a range of motion and the BioCartilage was stable. The Jaron retractor was removed. Copious irrigation was performed. Soft tissues were closed with 3-0 Vicryl and the skin was closed with 3-0 nylon. The patient was placed in a well-padded splint. He was extubated and transferred to the recovery room in stable condition. Dr. Torrez was present for the entire case and was essential for soft tissue retraction, aid in biocartilage and overall decrease in tourniquet time. PLAN: The patient will be nonweightbearing on the right lower extremity. He will be on aspirin for DVT prophylaxis. We will see him in two weeks for suture removal and placement into a boot. He will need to be nonweightbearing for a total of six weeks. DYLAN
== END 2020-01-22 14:30 | disposition home or self-care (01) ==
LOC: M SDC 07:02
PROVIDERS: ATTEND Orthopaedic Surgery
DX: M93.272 Osteochondritis dissecans, left ankle and joints of left foot (principal); K21.9 Gastro-esophageal reflux disease without esophagitis; F41.9 Anxiety disorder, unspecified; J45.909 Unspecified asthma, uncomplicated; G43.909 Migraine, unspecified, not intractable, without status migrainosus; Z88.5 Allergy status to narcotic agent; Z88.8 Allergy status to other drugs, medicaments and biological substances
CPT/HCPCS: 27626; 29891; A6024; C1762; J0131; J0690; J1100; J1170; J2405; J3010

== ENCOUNTER → 2021-11-18 | Outpatient (CLI) | payer BC ==
[~2021-11-18] MED LIST changes: +BUPR-71 PO; -BUPR150T5 PO; -LIDOCAINE 2% 100MG/5ML SDV (FOR ANES.) As Ordered ONE; -LR 1,000 ML IV ONE; -MIDAZOLAM INJ 2MG/2ML VIAL (J2250 PER 1MG) As Ordered ONE; -ONDANSETRON 4MG/2ML VIAL As Ordered ONE; -ROCURONIUM BROMIDE 50 MG/5 ML VIAL As Ordered ONE; -SUGAMMADEX SODIUM 500 MG/5 ML VIAL (BRIDION) As Ordered ONE; -ceFAZolin SOD 2 GM in IV 1 EA IV ONE; -dexameTHASONE 4 MG/ML 1ML VIAL (J1100 PER 1MG) As Ordered ONE; -fentaNYL 250 MCG/5 ML INJECTION (J3010) As Ordered ONE; -propofoL 200 MG/20 ML VIAL As Ordered ONE
== END ==
LOC: M RAD 07:34
PROVIDERS: ATTEND Physician Assistant
DX: M25.572 Pain in left ankle and joints of left foot (principal)

== ENCOUNTER → 2022-12-09 | Outpatient (CLI) | payer BC | LOC: M RAD 08:27 | PROVIDERS: ATTEND Student in an Organized Health Care Education/Training Program | DX: R10.84 Generalized abdominal pain (principal) ==